=== PATIENT | male | born 1950 | race Caucasian/White ===

== ENCOUNTER 2022-08-12 11:29 | Day surgery (SDC) | payer BC ==
[2022-08-11 13:29] LABS: BASOPHILS % (AUTO) 0.7 % (0-1); EOSINOPHILS # (AUTO) 0.1 X10'3 (0-0.9); EOSINOPHILS % (AUTO) 1.6 % (0-6); HEMATOCRIT 45.8 % (42.0-52.0); HEMOGLOBIN 15.4 g/dl (14.0-17.9); LYMPHOCYTES # (AUTO) 1.3 X10'3 (1.1-4.8); LYMPHOCYTES % (AUTO) 20.6 % (21-51); MEAN CORPUSCULAR HEMOGLOBIN 30.1 PG (27.0-31.0); MEAN CORPUSCULAR HGB CONC 33.7 g/dL (33.0-36.5); MEAN CORPUSCULAR VOLUME 89.2 FL (78-98); MEAN PLATELET VOLUME 9.2 FL (7.4-10.4); MONOCYTES # (AUTO) 0.4 X10'3 (0-0.9); MONOCYTES % (AUTO) 5.9 % (2-12); NEUTROPHILS # (AUTO) 4.5 X10'3 (1.8-7.7); NEUTROPHILS % (AUTO) 71.2 % (42-75); PLATELET COUNT 160 X10'3 (140-440); RED BLOOD COUNT 5.13 X10'6 (4.70-6.10); RED CELL DISTRIBUTION WIDTH 13.6 % (11.5-14.5); WHITE BLOOD COUNT 6.3 X10'3 (4.5-11.0)
[2022-08-11 13:42] LABS: APTT 31 SECONDS (22-32)
[2022-08-11 13:44] LABS: ANION GAP 7 (8-16); BLOOD UREA NITROGEN 26 MG/DL (7-18); BUN/CREATININE RATIO 18.8 (10.0-20.0); CALCIUM 9.3 MG/DL (8.5-10.1); CHLORIDE 105 MMOL/L (99-107); CHOL/HDL RATIO 2.1 (0.00-4.99); CHOLESTEROL 127 MG/DL (0-200); CREATININE 1.38 MG/DL (0.60-1.10); GLUCOSE 92 MG/DL (70-104); HDL CHOLESTEROL 60 MG/DL (35-60); LDL CHOLESTEROL 55 MG/DL (50-100); SODIUM 137 MMOL/L (135-145); TOTAL CARBON DIOXIDE 25.2 MMOL/L (24-32); TRIGLYCERIDES 58 MG/DL (20-135); eGFR 50 ML/MIN
[~2022-08-12] VITALS: Ht 175.3 cm; Wt 118.7 kg
[2022-08-12] VITALS (9 sets, daily range): BP systolic 105–139; BP diastolic 58–88
[2022-08-12] MEDS ORDERED: diphenhydrAMINE 25mg capsule PO PRN (12:40)
[2022-08-12] MEDS ORDERED: LORazepam 0.5 MG tablet PO PRN (12:40)
[2022-08-12] MEDS ORDERED: normal saline 1,000 ML IV SCH (12:40)
[2022-08-12] MEDS ORDERED: nitroGLYCERIN-Tridil 50MG/D5W 250 ML IV ONE (13:12)
[2022-08-12] MEDS ORDERED: LIDOcaine 1% (10mg/ml) 2ml vial ONE (13:12)
[2022-08-12] MEDS ORDERED: heparin 1,000unit/ml 10ml vial 10 ML ONE (13:13)
[2022-08-12] MEDS ORDERED: verapamil 2.5 mg/ml inj IV ONE (13:13)
[2022-08-12] MEDS ORDERED: iohexol 350MG/ML 100ml bottle IV ONE (13:13)
[2022-08-12] MEDS ORDERED: fentaNYL/PF 50MCG/1 ML 2ML syringe ONE (13:13)
[2022-08-12] MEDS ORDERED: midazolam 1 mg/ML 2ml injection ONE (13:13)
[2022-08-12] MEDS ORDERED: FINA5TAB11 PO (13:14)
[2022-08-12] MEDS ORDERED: BUPR200T30 PO (13:14)
[2022-08-12] MEDS ORDERED: AZIL1TAB2 PO (13:14)
[2022-08-12] MEDS ORDERED: ATOR10TA70 PO (13:14)
[2022-08-12] MEDS ORDERED: SITA1TBM7 PO (13:14)
[2022-08-12] MEDS ORDERED: FLO0.4C PO (13:14)
[2022-08-12] MEDS ORDERED: APIX5TAB3 PO (13:14)
[2022-08-12] MEDS ORDERED: FURO-150 PO (13:15)
[2022-08-12] MEDS ORDERED: LIDOcaine 1% (10mg/ml)w/preservative inj. 20ml MDV ONE (14:12)
[2022-08-12 14:56] LABS: ISTAT HGB ART 14.3 g/dl (14.0-17.9); ISTAT Hct ART 42 %PCV (42-52); ISTAT O2 SATURATION ARTERIAL 90 % (95-98); ISTAT SOURCE ART
[2022-08-12] MEDS ORDERED: proCHLORperazine 10 MG/2 ml inj IV PRN ×2 (15:45→15:55)
[2022-08-12] MEDS ORDERED: HYDROcodone/acetaminophen 10/325mg tab PO PRN ×2 (15:45→15:55)
[2022-08-12] MEDS ORDERED: OXAZEpam 15mg capsule PO PRN ×2 (15:45→15:55)
[2022-08-12] MEDS ORDERED: ondansetron/PF 4mg/2ml inj IV PRN ×2 (15:45→15:55)
[2022-08-12] MEDS ORDERED: HYDROcodone/acetaminophen 5mg/325mg tablet PO PRN ×2 (15:45→15:55)
[2022-08-13 07:16] LABS: ISTAT Hct MIX 43 %PCV (42-52); ISTAT O2 SATURATION MIX VENOUS 67 % (60-80); ISTAT SOURCE VEN
== END 2022-08-12 20:05 | disposition home or self-care (01) ==
LOC: SSTAY O 11:29
PROVIDERS: ATTEND Student in an Organized Health Care Education/Training Program
DX: I35.0 Nonrheumatic aortic (valve) stenosis (principal); I25.10 Atherosclerotic heart disease of native coronary artery without angina pectoris; G47.33 Obstructive sleep apnea (adult) (pediatric); E11.22 Type 2 diabetes mellitus with diabetic chronic kidney disease; I12.9 Hypertensive chronic kidney disease with stage 1 through stage 4 chronic kidney disease, or unspecified chronic kidney disease; N18.9 Chronic kidney disease, unspecified; F32.A Depression, unspecified; I48.0 Paroxysmal atrial fibrillation; E11.40 Type 2 diabetes mellitus with diabetic neuropathy, unspecified; F10.20 Alcohol dependence, uncomplicated; E66.9 Obesity, unspecified; Z68.38 Body mass index [BMI] 38.0-38.9, adult; Z79.899 Other long term (current) drug therapy; Z79.01 Long term (current) use of anticoagulants; Z91.09 Other allergy status, other than to drugs and biological substances; Z88.8 Allergy status to other drugs, medicaments and biological substances
CPT/HCPCS: 36415; 76937; 80048; 80061; 82803; 82948; 85014; 85025; 85610; 85730; 93005; 93456; 99152; 99153; C1769; J1644; J2250; J3010; J3490; J7030; Q0163; Q9967; A6258; A6449; C1751; C1894

== ENCOUNTER 2022-12-26 11:03 | Outpatient (CLI) | payer BC ==
[~2022-12-26] VITALS: Ht 175.3 cm; Wt 120.2 kg
[~2022-12-26 11:03] MED LIST: APIX5TAB3 PO; ATOR10TA70 PO; AZIL1TAB2 PO; BUPR200T30 PO; FINA5TAB11 PO; FLO0.4C PO; FURO-150 PO; SITA1TBM7 PO
[2022-12-26 11:54] LABS: BASOPHILS % (AUTO) 0.6 % (0-1); EOSINOPHILS # (AUTO) 0.2 X10'3 (0-0.9); EOSINOPHILS % (AUTO) 2.2 % (0-6); HEMOGLOBIN 13.1 g/dl (14.0-17.9); LYMPHOCYTES # (AUTO) 1.7 X10'3 (1.1-4.8); LYMPHOCYTES % (AUTO) 22.8 % (21-51); MEAN CORPUSCULAR HEMOGLOBIN 29.3 PG (27.0-31.0); MEAN CORPUSCULAR HGB CONC 32.9 g/dL (33.0-36.5); MEAN CORPUSCULAR VOLUME 89.1 FL (78-98); MEAN PLATELET VOLUME 8.5 FL (7.4-10.4); MONOCYTES # (AUTO) 0.5 X10'3 (0-0.9); MONOCYTES % (AUTO) 6.3 % (2-12); NEUTROPHILS # (AUTO) 5.1 X10'3 (1.8-7.7); NEUTROPHILS % (AUTO) 68.1 % (42-75); PLATELET COUNT 159 X10'3 (140-440); RED BLOOD COUNT 4.48 X10'6 (4.70-6.10); RED CELL DISTRIBUTION WIDTH 14.8 % (11.5-14.5); WHITE BLOOD COUNT 7.5 X10'3 (4.5-11.0)
[2022-12-26] MEDS ORDERED: IODIXANOL 320 MG/ML INFUS..BTL 100ML IV ONE (11:57)
[2022-12-26 11:58] LABS: APTT 29 SECONDS (22-32); INR 1.1 INR; PROTHROMBIN TIME 11.4 SECONDS (9.0-12.0)
[2022-12-26 11:59] LABS: ALANINE AMINOTRANSFERASE 23 U/L (12-78); ALBUMIN 3.5 G/DL (3.4-5.0); ALBUMIN/GLOBULIN RATIO 1.1 (1.1-1.5); ALKALINE PHOSPHATASE 61 IU/L (46-116); ANION GAP 8 (8-16); ASPARTATE AMINO TRANSFERASE 11 U/L (10-37); BILIRUBIN,TOTAL 0.7 MG/DL (0.1-1.0); BLOOD UREA NITROGEN 43 MG/DL (7-18); BUN/CREATININE RATIO 21.4 (10.0-20.0); CALCIUM 8.7 MG/DL (8.5-10.1); CHLORIDE 105 MMOL/L (99-107); CREATININE 2.01 MG/DL (0.60-1.10); GLUCOSE 141 MG/DL (70-104); POTASSIUM 3.8 MMOL/L (3.5-5.1); SODIUM 137 MMOL/L (135-145); TOTAL CARBON DIOXIDE 24.4 MMOL/L (24-32); TOTAL PROTEIN 6.8 G/DL (6.4-8.2); eGFR 33 ML/MIN
[2022-12-26 12:06] LABS: PRO BRAIN NATRIURETIC PEPTIDE 351 PG/ML (0-125)
[2022-12-26 13:26] VITALS: PULSE 71; RESP 12; O2SAT 98
[2022-12-26] MEDS ORDERED: albuterol 2.5 MG/3 ML nebule NEB ONE ×2 (14:10→14:45)
== END 2022-12-26 23:59 | disposition home or self-care (01) ==
LOC: RAD 11:03
PROVIDERS: ATTEND Internal Medicine Cardiovascular Disease
DX: Z01.818 Encounter for other preprocedural examination (principal); J98.11 Atelectasis; I25.10 Atherosclerotic heart disease of native coronary artery without angina pectoris; I77.810 Thoracic aortic ectasia; I51.7 Cardiomegaly; G47.30 Sleep apnea, unspecified; K42.9 Umbilical hernia without obstruction or gangrene; M43.8X6 Other specified deforming dorsopathies, lumbar region; M47.816 Spondylosis without myelopathy or radiculopathy, lumbar region; I35.0 Nonrheumatic aortic (valve) stenosis; I65.29 Occlusion and stenosis of unspecified carotid artery; Z79.899 Other long term (current) drug therapy
CPT/HCPCS: 36415; 71046; 71275; 74174; 75572; 80053; 83880; 85025; 85610; 85730; 94010; 94727; 94729; 94760; J3490; Q9967

== ENCOUNTER 2023-10-19 14:21 | Observation (INO) | payer BC ==
[2023-10-16 15:09] LABS: BASOPHILS # (AUTO) 0.1 X10'3 (0-0.2); BASOPHILS % (AUTO) 1.7 % (0-1); EOSINOPHILS # (AUTO) 0.1 X10'3 (0-0.9); EOSINOPHILS % (AUTO) 1.8 % (0-6); HEMATOCRIT 44.1 % (42.0-52.0); HEMOGLOBIN 14.6 g/dl (14.0-17.9); LYMPHOCYTES # (AUTO) 1.7 X10'3 (1.1-4.8); LYMPHOCYTES % (AUTO) 28.5 % (21-51); MEAN CORPUSCULAR HEMOGLOBIN 29.5 PG (27.0-31.0); MEAN CORPUSCULAR VOLUME 89.4 FL (78-98); MEAN PLATELET VOLUME 9.1 FL (7.4-10.4); MONOCYTES # (AUTO) 0.3 X10'3 (0-0.9); MONOCYTES % (AUTO) 5.8 % (2-12); NEUTROPHILS # (AUTO) 3.7 X10'3 (1.8-7.7); NEUTROPHILS % (AUTO) 62.2 % (42-75); PLATELET COUNT 159 X10'3 (140-440); RED BLOOD COUNT 4.94 X10'6 (4.70-6.10); RED CELL DISTRIBUTION WIDTH 13.6 % (11.5-14.5)
[2023-10-16 15:18] LABS: ALBUMIN 3.6 G/DL (3.4-5.0); ANION GAP 10 (8-16); BLOOD UREA NITROGEN 38 MG/DL (7-18); BUN/CREATININE RATIO 19.7 (10.0-20.0); CALCIUM 8.9 MG/DL (8.5-10.1); CHLORIDE 106 MMOL/L (99-107); CREATININE 1.93 MG/DL (0.60-1.10); GLUCOSE 122 MG/DL (70-104); POTASSIUM 4.5 MMOL/L (3.5-5.1); SODIUM 139 MMOL/L (135-145); TOTAL CARBON DIOXIDE 23.4 MMOL/L (24-32); eGFR 34 ML/MIN
[2023-10-16 15:21] LABS: APTT 29 SECONDS (22-32); INR 1.1 INR; PROTHROMBIN TIME 11.2 SECONDS (9.0-12.0)
[2023-10-19] VITALS (18 sets, daily range): BP systolic 121–163; BP diastolic 50–77; PULSE 55–86; RESP 13–20; TEMP 97.3–98.3; O2SAT 92–100
[~2023-10-19] VITALS: Ht 175.3 cm; Wt 118.1 kg
[2023-10-19] MEDS ORDERED: LORazepam 0.5 MG tablet PO PRN (14:55)
[2023-10-19] MEDS ORDERED: CLOP75TA34 PO (14:55)
[2023-10-19] MEDS ORDERED: TROS20TA4 PO (14:55)
[2023-10-19] MEDS ORDERED: LOSA50TA64 PO (14:58)
[2023-10-19] MEDS ORDERED: phenylephrine 10mg/ml inj. -priapism dosing ONE (15:45)
[2023-10-19] MEDS ORDERED: LIDOcaine 1% 30ml preserv. free vial ONE (15:45)
[2023-10-19] MEDS ORDERED: atropine 0.1mg/ml 10ml syringe ONE (15:46)
[2023-10-19] MEDS ORDERED: heparin 1,000unit/ml 10ml vial 10 ML ONE (15:46)
[2023-10-19] MEDS ORDERED: DOPamine 400mg/D5W 250ml 0 ML IV ONE (15:46)
[2023-10-19] MEDS ORDERED: epiNEPHrine 0.1mg/ml 10ml syringe ONE (15:46)
[2023-10-19] MEDS ORDERED: iohexol 350MG/ML 100ml bottle IV ONE (15:46)
[2023-10-19] MEDS: diphenhydrAMINE 25mg capsule PO PRN (15:54)
[2023-10-19] MEDS: normal saline 1,000 ML IV SCH (15:55)
[2023-10-19] MEDS ORDERED: HYDROmorphone 1 mg/ml syringe ONE (17:28)
[2023-10-19] MEDS ORDERED: clopidogrel 300mg tablet ONE (17:44)
[2023-10-19] MEDS ORDERED: pseudoephedrine 30mg tablet PO PRN (18:55)
[2023-10-19] MEDS ORDERED: HYDROcodone/acetaminophen 5mg/325mg tablet PO PRN (18:55)
[2023-10-19] MEDS ORDERED: OXAZEpam 15mg capsule PO PRN (18:55)
[2023-10-19] MEDS ORDERED: DOPamine 400mg/D5W 250ml 250 ML IV SCH (18:55)
[2023-10-19] MEDS: normal saline 1000ml 1,000 ML IV SCH (18:55)
[2023-10-19] MEDS ORDERED: proCHLORperazine 10 MG/2 ml inj IV PRN (18:55)
[2023-10-19] MEDS ORDERED: hydrALAZINE 20mg/ml inj. IV PRN (18:55)
[2023-10-19] MEDS: finasteride 5mg tablet PO SCH (19:04)
[2023-10-19] MEDS: SITAGLIPTIN PHOS PO SCH (19:06)
[2023-10-19] MEDS: METFORMIN HCL PO SCH (19:06)
--- NOTE | 2023-10-19 19:40 | NUR ---
Problems reprioritized. Patient report given, questions answered & plan of care reviewed with CRISTIN Omer, pt will be going to #[id number].
--- NOTE | 2023-10-19 19:45 | NUR ---
pt in room #3018A, VSS and pt's R stacy dsg CDI, all pt belongings transferred with pt, pt's RN at pt's bedside and pt is in no distress at this time.
--- NOTE | 2023-10-19 19:53 | NUR ---
Patient in room PCU 3018. I have received report from Kassandra AMARAL from PAS unit, and had the opportunity to ask questions and assume patient care.
[2023-10-19] MEDS ORDERED: DOPamine 400mg/D5W 250ml 250 ML IV PRN (20:02)
[2023-10-19] MEDS: TROSPIUM CHLORIDE PO SCH (21:00)
[2023-10-19] MEDS: tamsulosin 0.4mg capsule PO SCH (21:04)
[2023-10-19] MEDS: buPROPion SR 100mg tab PO SCH (21:05)
[2023-10-19] MEDS: clopidogrel 75mg tablet PO SCH (21:05)
[2023-10-19] MEDS: furosemide 20MG tablet PO SCH (21:05)
[2023-10-19] MEDS: losartan 50mg tablet PO SCH (21:06)
[2023-10-19] MEDS: atorvastatin 10mg tablet PO SCH (21:06)
[2023-10-19] MEDS: HYDROcodone/acetaminophen 10/325mg tab PO PRN (23:56)
[2023-10-20 03:39] VITALS: BP 124/46; PULSE 58; RESP 18; TEMP 97.5; O2SAT 95
[2023-10-20 04:00] VITALS: BP 124/46; PULSE 58; RESP 18; TEMP 97.5; O2SAT 95
[2023-10-20 06:00] VITALS: BP 130/50; PULSE 58; RESP 13; TEMP 97.5; O2SAT 94
--- NOTE | 2023-10-20 06:48 | NUR ---
Problems reprioritized. Patient report given, questions answered & plan of care reviewed with Pat RN. Pt stable at shift change.
[2023-10-20 11:00] VITALS: BP 125/42; PULSE 58; RESP 10; TEMP 98; O2SAT 99
== END 2023-10-20 14:46 | disposition home or self-care (01) ==
LOC: SSTAY O 14:21 → PCU 3S 19:38
PROVIDERS: ADMIT Student in an Organized Health Care Education/Training Program; ATTEND Student in an Organized Health Care Education/Training Program
DX: I65.29 Occlusion and stenosis of unspecified carotid artery (principal); I35.0 Nonrheumatic aortic (valve) stenosis; E11.9 Type 2 diabetes mellitus without complications; E78.5 Hyperlipidemia, unspecified; I10 Essential (primary) hypertension; I48.0 Paroxysmal atrial fibrillation; Z79.01 Long term (current) use of anticoagulants; Z79.899 Other long term (current) drug therapy
CPT/HCPCS: 36415; 37215; 80048; 82948; 83036; 85025; 85610; 85730; 87081; 93005; C1876; G0378; J0461; J1170; J1644; J2370; J3490; J7030; Q0163; Q9967; 36224; 37247; 99152; 99153; A6258; C1725; C1760; C1769; C1884; C1887; J0171; J1265